=== PATIENT | female | born 1955 | race Caucasian/White ===

== ENCOUNTER → 2017-04-19 | Outpatient (CLI) | payer OTHER ==
[~2017-04-19] MED LIST: CYCL-259 PO; DARI15TA3 PO; DULO60CA7 PO; MULT-516 PO; PREG75CA PO; TRAM50TA2 PO; [UNRECOGNIZED DRUG - OTHER] PO
== END | disposition home or self-care (01) ==
LOC: STAR 10:59
PROVIDERS: ATTEND Orthopaedic Surgery Foot and Ankle Surgery
DX: Z02.9 Encounter for administrative examinations, unspecified (principal)

== ENCOUNTER 2017-04-29 05:38 | Day surgery (SDC) | payer OTHER ==
[~2017-04-29] VITALS: Ht 165.1 cm; Wt 87.0 kg
[2017-04-29] MEDS ORDERED: LACTATED RINGERS 1,000 ML IV SCH (06:14)
[2017-04-29] MEDS ORDERED: LIDOCAINE/PF 1%, 30ML ONE (06:20)
[2017-04-29] MEDS ORDERED: BUPIVACAINE/PF 0.5% ONE ×2 (06:20→07:01)
[2017-04-29 06:23] VITALS: BP 145/91
[2017-04-29] MEDS ORDERED: MIDAZOLAM 1 MG/ML, 2ML ONE (06:59)
[2017-04-29] MEDS ORDERED: FENTANYL PF 250 MCG/5ML ONE (06:59)
[2017-04-29] MEDS ORDERED: PROPOFOL 10 MG/ML, 20ML ONE (07:22)
[2017-04-29] MEDS ORDERED: DEXAMETHASONE 4 MG/ML, 1ML ONE (07:22)
[2017-04-29] MEDS ORDERED: SUCCINYLCHOLINE 20 MG/ML, 10ML ONE (07:22)
[2017-04-29] MEDS ORDERED: CEFAZOLIN 1,000 MG ONE (07:22)
[2017-04-29] MEDS ORDERED: ONDANSETRON 2MG/ML, 2ML ONE (07:22)
[2017-04-29] MEDS ORDERED: LABETALOL 5MG/ML, 20ML IV PRN (08:00)
[2017-04-29] MEDS ORDERED: KETOROLAC 30 MG/1 ML IV PRN (08:00)
[2017-04-29] MEDS ORDERED: hydrALAzine 20 MG/ML, 1ML IV PRN (08:00)
[2017-04-29] MEDS ORDERED: EPHEDRINE 50 MG/ML, 1ML IVPush PRN (08:00)
[2017-04-29] MEDS ORDERED: ONDANSETRON 2MG/ML, 2ML IVPush PRN (08:00)
[2017-04-29] MEDS ORDERED: FENTANYL PF 100 MCG/2ML IV PRN (08:00)
[2017-04-29] MEDS ORDERED: MEPERIDINE/PF 25MG/0.5ML IVPush PRN (08:00)
[2017-04-29] MEDS ORDERED: PROMETHAZINE 25 MG/ML, 1ML IV PRN (08:00)
[2017-04-29] MEDS ORDERED: MIDAZOLAM 1 MG/ML, 2ML IV PRN (08:00)
[2017-04-29] MEDS ORDERED: OXYcodone 5 MG/5 ML ORAL.SOL UDC PO PRN (08:00)
[2017-04-29] MEDS ORDERED: ACETAMINOPHEN 325 MG TABLET PO PRN (08:00)
[2017-04-29] MEDS ORDERED: HYDROmorphone 1 MG/ML, 1ML IV PRN (08:00)
[2017-04-29] MEDS ORDERED: KETOROLAC 30 MG/1 ML ONE (09:30)
[2017-04-29] MEDS ORDERED: KETOROLAC 30 MG/1 ML IVPush ONE (10:00)
== END 2017-04-29 11:25 | disposition home or self-care (01) ==
LOC: OUT 05:38
PROVIDERS: ATTEND Orthopaedic Surgery Foot and Ankle Surgery
DX: S86.312A Strain of muscle(s) and tendon(s) of peroneal muscle group at lower leg level, left leg, initial encounter (principal); M25.372 Other instability, left ankle; X58.XXXA Exposure to other specified factors, initial encounter; Y93.89 Activity, other specified; Y92.89 Other specified places as the place of occurrence of the external cause; Y99.8 Other external cause status; Z98.890 Other specified postprocedural states; Z72.89 Other problems related to lifestyle
CPT/HCPCS: 27664; 27696; 28208; C1713; J0330; J0690; J1100; J1885; J2250; J2405; J2704; J3010; J3490; J7120

== ENCOUNTER → 2018-07-05 | Outpatient (CLI) | payer OTHER ==
[~2018-07-05] MED LIST changes: +GADOBUTROL 10 MMOL/10 ML PFS ONE; +GADOBUTROL 10 MMOL/10 ML VIAL ONE
== END | disposition home or self-care (01) ==
LOC: RAD 10:00
PROVIDERS: ATTEND Nurse Practitioner Family
DX: M62.50 Muscle wasting and atrophy, not elsewhere classified, unspecified site (principal); M25.472 Effusion, left ankle
CPT/HCPCS: 73723; A9585

== ENCOUNTER 2019-06-27 12:35 | Outpatient (CLI) | payer OTHER ==
[~2019-06-27 12:35] MED LIST changes: -GADOBUTROL 10 MMOL/10 ML PFS ONE; -GADOBUTROL 10 MMOL/10 ML VIAL ONE
== END 2019-06-27 23:59 | disposition home or self-care (01) ==
LOC: CFH 12:35
PROVIDERS: ATTEND Nurse Practitioner
DX: M76.72 Peroneal tendinitis, left leg (principal); M65.872 Other synovitis and tenosynovitis, left ankle and foot; M25.872 Other specified joint disorders, left ankle and foot; Z98.890 Other specified postprocedural states